=== PATIENT | female | born 1960 | race Asian ===

== ENCOUNTER 2019-03-22 07:49 | Day surgery (SDC) | payer OTHER ==
[~2019-03-22] VITALS: Ht 152.4 cm; Wt 54.0 kg
[~2019-03-22 07:49] MED LIST: ABC PLUS TABLE1 EACH PO; AMLO5 PO; ZYRTEC10 M1 PO
--- NOTE | 2019-03-22 09:42 | NUR ---
03/22/19 0942 Teresa Yeager PATIENT REFUSED MULTIPLE OFFERS PO FLUIDS
== END 2019-03-22 09:42 | disposition home or self-care (01) ==
LOC: ORSCSDS 07:49
PROVIDERS: Internal Medicine Gastroenterology
PROC: 0DBN8ZX Excision of Sigmoid Colon, Via Natural or Artificial Opening Endoscopic, Diagnostic (ICD-10-PCS; principal; 2019-03-22 09:00)
DX: Z12.11 Encounter for screening for malignant neoplasm of colon (principal); D12.5 Benign neoplasm of sigmoid colon; K64.8 Other hemorrhoids; I10 Essential (primary) hypertension; Z79.899 Other long term (current) drug therapy
CPT/HCPCS: 88305; J2704; J7120

== ENCOUNTER 2021-04-18 | Observation (INO) | payer OTHER ==
[~2021-04-18] VITALS: Ht 152.4 cm; Wt 53.5 kg
[2021-04-18 01:59] LABS: BASOPHILS ABSOLUTE AUTO 0.03 K/mm3 (0.00-0.23); BASOPHILS PERCENT AUTO 0 % (0-2); EOSINOPHILS ABSOLUTE AUTO 0.03 K/mm3 (0.00-0.68); EOSINOPHILS PERCENT AUTO 0 % (0-6); Hematocrit 43.9 % (33.0-51.0); Hemoglobin 14.6 g/dL (11.5-16.0); IMMATURE GRAN ABSOLUTE AUTO 0.04 K/mm3 (0.00-0.10); IMMATURE GRAN PERCENT AUTO 0 % (0-1); LYMPHOCYTES ABSOLUTE AUTO 1.41 K/mm3 (0.84-5.20); LYMPHOCYTES PERCENT AUTO 10 % (21-46); MONOCYTES ABSOLUTE AUTO 1.02 K/mm3 (0.16-1.47); MONOCYTES PERCENT AUTO 7 % (4-13); Mean Corpuscular HGB 31.3 pg (26.0-34.0); Mean Corpuscular HGB Conc 33.3 g/dL (31.5-36.5); Mean Corpuscular Volume 94 fL (80-100); NEUTROPHILS PERCENT AUTO 82 % (41-73); Platelet Count 253 K/mm3 (150-400); RDW Coefficient Variation 12.1 % (11.7-14.2); Red Blood Cell Count 4.66 M/mm3 (3.80-5.20); White Blood Cell Count 14.43 K/mm3 (4.00-11.30)
[2021-04-18 02:18] LABS: Alanine Aminotransfer (ALT/SGP 38 U/L (12-78); Albumin, Blood 3.9 g/dL (3.4-5.0); Alk Phos 84 U/L (50-136); Anion Gap 6 mmol/L (6-16); Aspartate Aminotrans (AST/SGOT 38 U/L (12-37); Bilirubin, Total 0.6 mg/dL (0.1-1.0); Blood Urea Nitrogen 19 mg/dL (8-24); Bun/Creatinine Ratio 24.4 (12.0-20.0); CO2, Blood 28 mmol/L (21-32); Calcium, Blood 9.4 mg/dL (8.5-10.1); Chloride, Blood 105 mmol/L (98-108); Creatinine, Blood 0.78 mg/dL (0.40-1.00); Globulin, Blood 4.1 g/dL (2.2-4.0); Glomerular Filtration Rate >60 (60-); Glucose, Blood 121 mg/dL (70-99); Potassium, Blood 3.9 mmol/L (3.5-5.5); Sodium, Blood 139 mmol/L (136-145)
[2021-04-18 04:42] LABS: Source, Urine Clean Catch
[2021-04-18 04:43] LABS: Bilirubin, Urine Neg (Neg); Blood, Urine Neg (Neg); Glucose Qualitative, Urine Neg (Neg); Ketones, Urine 1+ (Neg); Leukocyte Esterase, Urine Neg (Neg); Nitrite, Urine Neg (Neg); Protein, Urine Neg (Neg); Urobilinogen, Urine NORM (Normal)
--- NOTE | 2021-04-18 04:45 | NUR ---
TRANSFER NOTE REPORT FROM BRIAN BALL RN. PT ARRIVES TO FLOOR BY GURNEY AND AMBULATES TO THE BED WITH A STEADY GAIT. IV ABX ARE COMPLETE AND IV IS SALINE LOCKED. PT ORIENTED TO ROOM/UNIT/AND CALL LIGHT. BED IN LOW POSITION. CALL LIGHT WITHIN REACH.
[2021-04-18 04:48] LABS: SARS-Cov-2 (COVID-19) PCR, MMC NEGATIVE (NEGATIVE)
[2021-04-18 04:53] LABS: Appearance, Urine Clear (Clear); Color, Urine Yellow (P-Yellow)
--- NOTE | 2021-04-18 06:33 | NUR ---
PT SCHEDULED FOR APPENDECTOMY THIS AM. ORDERS FOR TYPE AND SCREEN AND EKG OBTAINED. CURRENTLY NPO. CALL LIGHT IN REACH
--- NOTE | 2021-04-18 08:31 | NUR ---
04/18/21 0831 JENIFRANKY JAQUEZ PT RECEIVED SCHEDULED DOSE OF IV ANTIBIOTICS PER DR ORDERS PRIOR TO PROCEDURE.DR SWAN
--- NOTE | 2021-04-18 10:46 | NUR ---
PT RESTING COMFORTABLY. HAS NO COMPLAINTS OF PAIN OR NAUSEA AT THIS TIME. VITAL SIGNS HAVE REMAINED STABLE. PAS STOCKINGS IN PLACE.
--- NOTE | 2021-04-18 12:49 | NUR ---
PT ATE MOST OF HER LUNCH AND HAS HAD SEVERAL BEVERAGES TO DRINK. NO COMPLAINTS OF NAUSEA OR PAIN AT THIS TIME. IS RESTING COMFORTABLY, VSS. ERNST HER SPOUSE CALLED TO CHECK ON HER AND WITH HER PERMISSSION I INFORMED HIM SHE WAS OUT OF SURGERY, EVERYTHING WENT WELL AND SHE WAS RESTING COMFORTABLY.
[2021-04-18] MEDS ORDERED: Norco 5-325 Ta1 EACH PO (14:58)
--- NOTE | 2021-04-18 16:12 | NUR ---
PT DISCHARGED AT 1606 INTO THE CARE OF HER , ERNST. ALL BELONGS WERE RETURNED TO PT INCLUDING PURSE, GLASSES AND PHONE. VSS. DISCHARGE INSTRUCTIONS REVIEWED AND ALL QUESTIONS ANSWERED. NORCO GIVEN REDUCED PAIN TO A 1/10, NO NAUSEA NOTED. PT STATES SHE FEELS COMFORTABLE GOING HOME AND WILL BE ABLE TO CARE FOR HERSELF.
== END 2021-04-18 16:20 | disposition home or self-care (01) ==
LOC: ER → MEDS 00:01 → ORSCIP 09:50
PROVIDERS: Emergency Medicine; ADMIT Surgery
DX: K35.80 Unspecified acute appendicitis (principal); I10 Essential (primary) hypertension; Z20.822 Contact with and (suspected) exposure to COVID-19; Z88.0 Allergy status to penicillin
CPT/HCPCS: 36415; 74177; 80053; 81003; 83690; 85025; 86850; 86900; 86901; 88304; 96365; 96375; 96376; 99285-25; A9270; G0378; J0694; J1100; J1885; J2405; J2704; J3010; J7030; J7050; Q9967; U0004

== ENCOUNTER → 2021-06-02 | Outpatient (CLI) | payer OTHER ==
[~2021-06-02] MED LIST changes: +Norco 5-325 Ta1 EACH PO
[2021-06-08 15:10] LABS: HPV 16 Negative (Negative); HPV 18 Negative (Negative); HPV OTHER HR TYPES Negative (Negative)
== END | disposition home or self-care (01) ==
LOC: LAB 18:32 → LAB SHORT 18:32
PROVIDERS: Student in an Organized Health Care Education/Training Program
DX: Z01.419 Encounter for gynecological examination (general) (routine) without abnormal findings (principal)
CPT/HCPCS: 87624; G0145

== ENCOUNTER → 2021-09-07 | Outpatient (CLI) | payer OTHER | END | disposition home or self-care (01) | LOC: LAB SHORT 13:24 | DX: N84.1 Polyp of cervix uteri (principal) | CPT/HCPCS: 88305 ==

== ENCOUNTER → 2022-11-23 | Outpatient (CLI) | payer BC, OTHER | LOC: LAB SHORT 13:07 → PLD 13:07 | DX: N90.89 Other specified noninflammatory disorders of vulva and perineum (principal) | CPT/HCPCS: 88305; 88312 ==

== ENCOUNTER → 2025-08-11 | Outpatient (CLI) | payer OTHER | END | disposition home or self-care (01) | LOC: LAB SHORT 12:59 → LAB 12:59 | PROVIDERS: Student in an Organized Health Care Education/Training Program | DX: Z01.419 Encounter for gynecological examination (general) (routine) without abnormal findings (principal) | CPT/HCPCS: 87624; G0123 ==